=== PATIENT | male | born 1995 | race Caucasian/White ===

== ENCOUNTER 2019-02-13 16:18 | Emergency (ER) | payer OTHER ==
[2019-02-13 16:28] VITALS: BP 119/55
--- NOTE | 2019-02-13 16:42 | ER Document Report ---
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 He reports he is rolled his ankle in the past but denies past surgical history to the ankle. No other complaints such as fever vomiting diarrhea. Patient did take Tylenol for the pain. 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 [place] Lives with: Family Family History: Reviewed & Not Pertinent Patient has suicidal ideation: No Patient has homicidal ideation: No Renal/ Medical History: Denies: Hx Peritoneal Dialysis Musculoskeletal Medical History: Reports Hx Musculoskeletal Trauma - Right foot fracture as a child Traumatic Medical History: Reports: Hx Fractures - Right foot Past Surgical History: Reports: Hx Myringotomy, Hx Oral Surgery - [place] teeth, Hx Tonsillectomy - Immunizations Immunizations up to date: Yes Hx Diphtheria, Pertussis, Tetanus Vaccination: Yes Vertical Provider Document - CONSTITUTIONAL Agree With Documented VS: Yes Exam Limitations: No Limitations General Appearance: WD/WN, Mild Distress - Guarding right ankle - INFECTION CONTROL TRAVEL OUTSIDE OF THE [place] IN LAST 30 DAYS: No - HEENT HEENT: Atraumatic, Normocephalic - NECK Neck: Supple - RESPIRATORY Respiratory: No Respiratory Distress - CARDIOVASCULAR Cardiovascular: Regular Rate - MUSCULOSKELETAL/EXTREMETIES Musculoskeletal/Extremeties: MAEW, FROM, Tender - Right ankle tender to palpate no obvious deformity good pedal pulse cap refill less than 2 seconds. - NEURO Level of Consciousness: Awake, Alert, Appropriate Motor/Sensory: No Motor Deficit - DERM Integumentary: Warm, Dry Course - Re-evaluation Re-evalutation: 02/13/19 16:41 23-year-old male presents emergency department with right ankle pain after he rolled it while trying to get on a forklift. Reports he has a history of rolling that same ankle. X-ray ordered. 02/13/19 17:47 Negative x-ray for acute fracture. Patient was instructed on this instructed ankle stirrup splint crutches ice elevate and Motrin for pain. Patient is actively agreeing he was instructed to follow-up with his [facility] for referral to orthopedics as indicated. He verbalized understanding till instructions. Ankle X-Ray 02/13/19 16:38 IMPRESSION: NEGATIVE STUDY OF THE RIGHT ANKLE. NO RADIOGRAPHIC EVIDENCE OF ACUTE INJURY. Dictation of this chart was performed using voice recognition software; therefore, there may be some unintended grammatical errors. - Vital Signs Vital signs: Temp Pulse Resp BP Pulse Ox 98 F 93 16 119/55 L 97 02/13/19 16:25 02/13/19 16:25 02/13/19 16:25 02/13/19 16:25 02/13/19 16:25 - Diagnostic Test Radiology reviewed: Image reviewed, Reports reviewed Procedures - Immobilization Right Ankle Immobilizer type: Ankle stirrup Performed by: PCT Post-Proc Neuro Vasc Exam: Unchanged from pre-exam Discharge - Discharge Clinical Impression: Right ankle pain Condition: Stable Disposition: HOME, SELF-CARE Instructions: Use of Crutches ([facility]), Use of Tlpu-Vwu-Cbvzsfi Ibuprofen ([facility]), Ice & Elevation ([facility]), Temporary Splint ([facility]) Additional Instructions: *You have been evaluated for an ankle injury *The x-ray was negative for an acute fracture *Rest/Ice/Elevate your ankle *Maintain the splint, use your crutches the next 3 days *Follow up with your BAS Friday for referral to orthopedics as indicated *Take Tylenol or Motrin as indicated for pain *Return to ED for worsening condition, changes, needs
--- NOTE | 2019-02-13 17:11 | RADIOLOGY REPORT (SQ) ---
EXAM DESCRIPTION: ANKLE RIGHT COMPLETE COMPLETED DATE/TIME: 02/13/2019 4:58 pm REASON FOR STUDY: PAIN ,ROLLED ANKLE COMPARISON: None. NUMBER OF VIEWS: Three views. TECHNIQUE: AP, lateral, and oblique radiographic images acquired of the right ankle. LIMITATIONS: None. FINDINGS: MINERALIZATION: Normal. BONES: No acute fracture or dislocation. No worrisome bone lesions. JOINTS: No effusions. SOFT TISSUES: No soft tissue swelling. No foreign body. OTHER: No other significant finding. IMPRESSION: NEGATIVE STUDY OF THE RIGHT ANKLE. NO RADIOGRAPHIC EVIDENCE OF ACUTE INJURY. TECHNICAL DOCUMENTATION: JOB ID: [id number] [employer]- All Rights Reserved Reading location - IP/workstation name: [email or web address]
== END 2019-02-13 18:13 | disposition home or self-care (01) ==
LOC: ER 16:18
DX: M25.571 Pain in right ankle and joints of right foot (principal); X50.9XXA Other and unspecified overexertion or strenuous movements or postures, initial encounter; Y93.89 Activity, other specified; Y92.59 Other trade areas as the place of occurrence of the external cause; Y99.0 Civilian activity done for income or pay
CPT/HCPCS: 73610; L1902; 99283